=== PATIENT | female | born 1980 | race Caucasian/White ===

== ENCOUNTER 2018-09-30 06:58 | Emergency (ER) | payer OTHER ==
[~2018-09-30] VITALS: Ht 154.9 cm; Wt 61.2 kg
[~2018-09-30 06:58] MED LIST: CHOL10002; DHEA PO; MULT50FEL PO; Pepcid40 MG PO; Super B With V1 EACH PO
[2018-09-30] MEDS ORDERED: Norco 5-325 Ta1 EACH PO (07:12)
== END 2018-09-30 07:20 | disposition home or self-care (01) ==
LOC: ER 06:58
DX: R51 Headache (principal); Z87.891 Personal history of nicotine dependence
CPT/HCPCS: 99283

== ENCOUNTER 2021-03-06 17:45 | Emergency (ER) | payer OTHER ==
[~2021-03-06] VITALS: Ht 154.9 cm; Wt 69.8 kg
[~2021-03-06 17:45] MED LIST changes: +Norco 5-325 Ta1 EACH PO
[2021-03-06] MEDS ORDERED: ONDA4ODT MM (19:10)
== END 2021-03-06 19:12 | disposition home or self-care (01) ==
LOC: ER 17:45
DX: U07.1 COVID-19 (principal); Z79.899 Other long term (current) drug therapy; Z87.891 Personal history of nicotine dependence
CPT/HCPCS: 99282

== ENCOUNTER 2024-05-06 04:24 | Emergency (ER) | payer BC ==
[~2024-05-06] VITALS: Ht 157.5 cm; Wt 62.6 kg
[~2024-05-06 04:24] MED LIST changes: +ESTR2 PO; +FERROUS GLUCON324 M7 PO; +IBUP800 PO; +Norethindrone Ac5 MG PO; +ONDA4ODT MM; +ONE DAILY MUL400 MCG PO; +PROM25 PO; +Percocet 5-3251 EACH PO; +SIME80CH PO
[2024-05-06 04:33] VITALS: BP 126/89
[2024-05-06] MEDS ORDERED: Ibuprofen 600 MG Tab PO ONE (04:45)
== END 2024-05-06 06:08 ==
LOC: ER 04:24
DX: S43.401A Unspecified sprain of right shoulder joint, initial encounter (principal); X58.XXXA Exposure to other specified factors, initial encounter; Z87.891 Personal history of nicotine dependence; Z79.899 Other long term (current) drug therapy; Z88.5 Allergy status to narcotic agent
CPT/HCPCS: 73030; 99283-25; A9270

== ENCOUNTER → 2025-02-18 | Outpatient (CLI) | payer BC ==
[2025-02-18 16:45] LABS: BASOPHILS ABSOLUTE AUTO 0.04 K/mm3 (0.00-0.23); BASOPHILS PERCENT AUTO 1 % (0-2); EOSINOPHILS ABSOLUTE AUTO 0.06 K/mm3 (0.00-0.68); EOSINOPHILS PERCENT AUTO 1 % (0-6); Hematocrit 42.2 % (33.0-51.0); Hemoglobin 14.2 g/dL (11.5-16.0); IMMATURE GRAN ABSOLUTE AUTO 0.01 K/mm3 (0.00-0.10); IMMATURE GRAN PERCENT AUTO 0 % (0-1); LYMPHOCYTES ABSOLUTE AUTO 1.61 K/mm3 (0.84-5.20); LYMPHOCYTES PERCENT AUTO 33 % (21-46); MONOCYTES ABSOLUTE AUTO 0.37 K/mm3 (0.16-1.47); MONOCYTES PERCENT AUTO 8 % (4-13); Mean Corpuscular HGB Conc 33.6 g/dL (31.5-36.5); Mean Corpuscular Volume 89 fL (80-100); NEUTROPHILS ABSOLUTE AUTO 2.80 K/mm3 (1.96-9.15); NEUTROPHILS PERCENT AUTO 57 % (41-73); NRBC ABSOLUTE 0.00 K/mm3 (0.00-0.02); NRBC Auto 0.0 /100 WBC (0.0-0.2); Platelet Count 234 K/mm3 (150-400); RDW Coefficient Variation 12.4 % (11.7-14.2); RDW Standard Deviation 40.6 fL (35.1-46.3)
[2025-02-18 17:05] LABS: Alanine Aminotransfer (ALT/SGP 27.0 U/L (12-78); Albumin, Blood 4.4 g/dL (3.4-5.0); Albumin/Globulin Ratio 1.3 (0.8-1.8); Anion Gap 10.0 mmol/L (3-11); Aspartate Aminotrans (AST/SGOT 14.0 U/L (12-37); Bilirubin, Total 0.3 mg/dL (0.1-1.0); Blood Urea Nitrogen 15.0 mg/dL (8-24); CO2, Blood 30.0 mmol/L (21-32); Calcium, Blood 9.4 mg/dL (8.5-10.1); Chloride, Blood 102.0 mmol/L (98-108); Creatinine, Blood 0.66 mg/dL (0.40-1.00); Globulin, Blood 3.3 g/dL (2.2-4.0); Glucose, Blood 101.0 mg/dL (70-99); Potassium, Blood 4.1 mmol/L (3.5-5.5); Sodium, Blood 138.0 mmol/L (136-145); Total Protein, Blood 7.7 g/dL (6.4-8.2)
== END ==
LOC: LAB 16:40 → LAB SHORT 16:40
DX: R42 Dizziness and giddiness (principal)
CPT/HCPCS: 80053; 85025